=== PATIENT | male | born 1945 | race Caucasian/White ===

== ENCOUNTER 2021-02-03 14:15 | Inpatient (IN) | payer MEDICARE, OTHER ==
[~2021-02-03] VITALS: Ht 175.3 cm; Wt 83.0 kg
[2021-02-03] MEDS ORDERED: CYCL30DR EACHEYE (17:38)
[2021-02-03] MEDS ORDERED: DORZ10DR11 EACHEYE (17:38)
[2021-02-03] MEDS ORDERED: ALLO100T56 PO (17:38)
[2021-02-03] MEDS ORDERED: ASPI81TA31 PO (17:38)
[2021-02-03] MEDS ORDERED: CARV6.252 PO (17:38)
[2021-02-03] MEDS ORDERED: CHOL3000 PO (17:38)
[2021-02-03] MEDS ORDERED: FERR325T28 PO (17:38)
[2021-02-03] MEDS ORDERED: GLIM2TAB31 PO (17:38)
[2021-02-03] MEDS ORDERED: ATOR40TA PO (17:38)
[2021-02-03] MEDS ORDERED: LINA5TAB PO (17:38)
[2021-02-03] MEDS ORDERED: AMIO200T5 PO (17:38)
[2021-02-03] MEDS ORDERED: FAMO10TA94 PO (17:38)
[2021-02-03] MEDS ORDERED: PRED5DRO16 LEFTEYE (17:38)
[2021-02-03] MEDS ORDERED: PIOG15TA8 PO (17:38)
[2021-02-03] MEDS ORDERED: ALPR1TAB2 PO (17:38)
[2021-02-03] MEDS ORDERED: LATA2.5D15 OP (17:38)
[2021-02-03] MEDS ORDERED: CLOP75TA33 PO (17:38)
[2021-02-03 17:46] VITALS: BP 132/55
[2021-02-03] MEDS ORDERED: DEXTROSE 50% 50 ML DISP.SYRIN IV PRN (19:30)
[2021-02-03 20:13] VITALS: BP 110/65
[2021-02-03] MEDS: BLOOD SUGAR DIAGNOSTIC 1 EACH STRIP VI SCH (20:34)
[2021-02-03] MEDS: INSULIN REGULAR, HUMAN 300 UNIT/3 ML VIAL SQ PRN (20:37)
[2021-02-04 06:07] VITALS: BP 144/62
[2021-02-04] MEDS: BLOOD SUGAR DIAGNOSTIC 1 EACH STRIP VI SCH ×4 (06:42→20:51)
[2021-02-04] MEDS: INSULIN REGULAR, HUMAN 300 UNIT/3 ML VIAL SQ PRN ×4 (08:08→20:53)
[2021-02-04] MEDS ORDERED: DORZOLAMIDE/TIMOLOL OPHT DROP 10 ML BOTTLE EACHEYE SCH ×2 (09:00→17:00)
[2021-02-04] MEDS ORDERED: prednisoLONE ACET 1% OPHT DROP 5 ML BOTTLE LEFTEYE SCH (09:00)
[2021-02-04] MEDS ORDERED: CHOLECALCIFEROL 125 MCG PO SCH (09:00)
[2021-02-04] MEDS ORDERED: FAMOTIDINE 10 MG PO SCH (09:00)
[2021-02-04] MEDS ORDERED: RESTASIS EYE EACHEYE SCH (09:00)
[2021-02-04] MEDS: CHOLECALCIFEROL 1,000 UNIT TABLET PO SCH (09:08)
[2021-02-04] MEDS: GLIMEPIRIDE 2 MG TABLET PO SCH (09:08)
[2021-02-04] MEDS: PIOGLITAZONE HCL 15 MG TABLET PO SCH (09:09)
[2021-02-04] MEDS: CARVEDILOL 6.25 MG TABLET PO SCH ×2 (09:09→16:52)
[2021-02-04] MEDS: ALLOPURINOL 100 MG TABLET PO SCH ×2 (09:09→16:54)
[2021-02-04] MEDS: CLOPIDOGREL 75 MG TABLET PO SCH (09:10)
[2021-02-04] MEDS: ASPIRIN 81 MG TAB.CHEW PO SCH (09:10)
[2021-02-04] MEDS: LINAGLIPTIN 5 MG TABLET PO SCH (09:10)
[2021-02-04] MEDS: AMIODARONE HCL 200 MG TABLET PO SCH (09:10)
[2021-02-04] MEDS: FAMOTIDINE 20 MG TABLET PO SCH (09:11)
[2021-02-04] MEDS: FERROUS SULFATE 325 MG TABEC PO SCH ×2 (09:11→16:51)
[2021-02-04 10:16] VITALS: BP 140/70
[2021-02-04] MEDS: MIRALAX 17 GM POWD.PACK PO SCH (11:51)
[2021-02-04] MEDS ORDERED: ACETAMINOPHEN 325 MG TABLET PO PRN (13:30)
[2021-02-04 13:50] LABS: HEMATOCRIT 27.7 % (36.7-47.1); MEAN CORPUSCULAR HEMOGLOBIN 31.9 uug (23.8-33.4); MEAN CORPUSCULAR VOLUME 96.3 fL (73.0-96.2); PLATELET COUNT (AUTO) 267 K/uL (152-348)
[2021-02-04 14:00] LABS: CARBON DIOXIDE 27 mmol/L (21-32); CHLORIDE 105 mmol/L (98-107); CREATININE 2.3 mg/dL (0.6-1.3); GLUCOSE 228 mg/dL (74-106); POTASSIUM 3.7 mmol/L (3.5-5.1); UREA NITROGEN, BLOOD 36 mg/dL (7-18)
[2021-02-04 15:57] VITALS: BP 131/56
[2021-02-04] MEDS: prednisoLONE ACET 1% OPHT DROP 5 ML BOTTLE LEFTEYE SCH (16:49)
[2021-02-04 19:48] VITALS: BP 143/62
[2021-02-04] MEDS ORDERED: ALPRAZOLAM 0.5 MG TABLET PO SCH (21:00)
[2021-02-04] MEDS ORDERED: ALPRAZOLAM 1.5 MG PO SCH (21:00)
[2021-02-04] MEDS ORDERED: ATORVASTATIN 40 MG TABLET PO SCH (21:00)
[2021-02-05 04:34] VITALS: BP 130/59
[2021-02-05] MEDS: BLOOD SUGAR DIAGNOSTIC 1 EACH STRIP VI SCH ×2 (06:33→11:14)
[2021-02-05] MEDS: INSULIN REGULAR, HUMAN 300 UNIT/3 ML VIAL SQ PRN ×2 (07:57→11:11)
[2021-02-05 08:44] LABS: CARBON DIOXIDE 28 mmol/L (21-32); CHLORIDE 104 mmol/L (98-107); CREATININE 2.4 mg/dL (0.6-1.3); GLUCOSE 234 mg/dL (74-106); MAGNESIUM 1.9 mg/dL (1.8-2.4); POTASSIUM 3.8 mmol/L (3.5-5.1); UREA NITROGEN, BLOOD 39 mg/dL (7-18)
[2021-02-05] MEDS: CHOLECALCIFEROL 1,000 UNIT TABLET PO SCH (08:50)
[2021-02-05] MEDS: LINAGLIPTIN 5 MG TABLET PO SCH (08:51)
[2021-02-05] MEDS: prednisoLONE ACET 1% OPHT DROP 5 ML BOTTLE LEFTEYE SCH (08:51)
[2021-02-05] MEDS: AMIODARONE HCL 200 MG TABLET PO SCH (08:51)
[2021-02-05] MEDS: ASPIRIN 81 MG TAB.CHEW PO SCH (08:51)
[2021-02-05] MEDS: MIRALAX 17 GM POWD.PACK PO SCH (08:52)
[2021-02-05] MEDS: CARVEDILOL 6.25 MG TABLET PO SCH (08:54)
[2021-02-05] MEDS: GLIMEPIRIDE 2 MG TABLET PO SCH (08:54)
[2021-02-05] MEDS: ALLOPURINOL 100 MG TABLET PO SCH (08:54)
[2021-02-05] MEDS: PIOGLITAZONE HCL 15 MG TABLET PO SCH (08:54)
[2021-02-05] MEDS: FAMOTIDINE 20 MG TABLET PO SCH (08:56)
[2021-02-05] MEDS: CLOPIDOGREL 75 MG TABLET PO SCH (08:56)
[2021-02-05] MEDS: FERROUS SULFATE 325 MG TABEC PO SCH (08:56)
[2021-02-05] MEDS ORDERED: DORZOLAMIDE/TIMOLOL OPHT DROP 10 ML BOTTLE EACHEYE SCH (09:00)
[2021-02-05] MEDS ORDERED: FUROSEMIDE 40 MG/4 ML VIAL IV SCH (09:00)
[2021-02-05 13:14] VITALS: BP 120/58
[2021-02-05] MEDS ORDERED: POLYVINYL ALCOHOL OPHT DROPS 15 ML BOTTLE EACHEYE PRN (13:30)
[2021-02-05] MEDS ORDERED: ONDANSETRON 4 MG/2 ML VIAL IV PRN (13:45)
[2021-02-05 14:47] LABS: *BILIRUBIN,URIN NEGATIVE (NEGATIVE); *BLOOD, URINE NEGATIVE (NEGATIVE); *CLARITY,URINE CLEAR (CLEAR); *COLOR,URINE YELLOW (YELLOW); *KETONES,URINE NEGATIVE (NEGATIVE); *UROBILINOGEN,URINE 0.2 E.U./dl (NORMAL); LEUKOCYTE ESTERASE ,URINE NEGATIVE (NEGATIVE); NITRITE, URINE NEGATIVE (NEGATIVE); UGLUCOSE TRACE (NEGATIVE)
[2021-02-05 14:52] LABS: BACTERIA,URINE NONE SEEN /HPF (NONE SEEN); MUCUS,URINE FEW /LPF (0-FEW); SQUAMOUS EPITHELIAL CELL,UR FEW /HPF (NONE SEEN); URINE AMORPHOUS URATE FEW /HPF; WBC,URINE 0-3 /HPF (0-3)
[2021-02-05] MEDS ORDERED: LATANOPROST OPHT DROP 2.5 ML BOTTLE RIGHTEYE SCH (21:00)
== END 2021-02-05 15:00 | disposition short-term general hospital (02) | DRG 559 ==
PROVIDERS: ADMIT Physical Medicine & Rehabilitation Pain Medicine; ATTEND Physical Medicine & Rehabilitation Pain Medicine
DX: S72.002D Fracture of unspecified part of neck of left femur, subsequent encounter for closed fracture with routine healing (principal); I50.31 Acute diastolic (congestive) heart failure; I21.4 Non-ST elevation (NSTEMI) myocardial infarction; J96.00 Acute respiratory failure, unspecified whether with hypoxia or hypercapnia; I13.0 Hypertensive heart and chronic kidney disease with heart failure and stage 1 through stage 4 chronic kidney disease, or unspecified chronic kidney disease; N17.9 Acute kidney failure, unspecified; R53.1 Weakness; W19.XXXD Unspecified fall, subsequent encounter; E11.22 Type 2 diabetes mellitus with diabetic chronic kidney disease; E78.5 Hyperlipidemia, unspecified; Z96.642 Presence of left artificial hip joint; I25.10 Atherosclerotic heart disease of native coronary artery without angina pectoris; I48.0 Paroxysmal atrial fibrillation; Z95.1 Presence of aortocoronary bypass graft; F39 Unspecified mood [affective] disorder; N18.30 Chronic kidney disease, stage 3 unspecified
CPT/HCPCS: 36415; 71045; 83735; 85025; 93307; 97161; J1815; J1940; J2405; J2650; J7040; J8499

== ENCOUNTER 2021-02-05 15:47 | Inpatient (IN) | payer MEDICARE, OTHER ==
[~2021-02-05] VITALS: Ht 175.3 cm; Wt 79.4 kg
--- NOTE | 2021-02-05 15:30 | NUR ---
PT ADMITTED TO FLOOR, IN ROOM 310. REPORT RECEIVED FROM ARU NURSE. PT C/O LETHARGY AND SOB, UPON ADDITION PT IS ON 2L O2 VIA NC, NO SIGNS OF DISTRESS, NO REPORTS OF PAIN. PT SATURATING AT 100% ON O2, VITALS STABLE. PT IS BED CONFINED AT THIS TIME, PT VOIDING VIA URINAL, IV ACCESS ON THE RIGHT WRIST 22G AND THE LEFT WRIST 22G BOTH SITES ARE SALINE LOCKED. PT WAS AT [facility] 02/03 FOR A LEFT HIP REPLACEMENT ON 01/29 AND DUE TO A BLOCKAGE THEY DID A CABG ON 01/28. ADMITTING MD MADE AWARE THAT PT IN NOW ADMITTED TO THE FLOOR. BED LOW AND LOCKED, CALL LIGHT WITHIN REACH, FAMILY AT BEDSIDE, WILL CONTINUE TO MONITOR.
[~2021-02-05 15:47] MED LIST: ALLO100T56 PO; ALPR1TAB2 PO; AMIO200T5 PO; ASPI81TA31 PO; ATOR40TA PO; CARV6.252 PO; CHOL3000 PO; CLOP75TA33 PO; CYCL30DR EACHEYE; DORZ10DR11 EACHEYE; FAMO10TA94 PO; FERR325T28 PO; GLIM2TAB31 PO; LATA2.5D15 OP; LINA5TAB PO; PIOG15TA8 PO; PRED5DRO16 LEFTEYE
[2021-02-05 15:52] VITALS: BP 109/52
[2021-02-05] MEDS ORDERED: ACETAMINOPHEN 325 MG TABLET PO PRN (17:30)
[2021-02-05] MEDS ORDERED: ZOLPIDEM 5 MG TABLET PO PRN (17:30)
[2021-02-05] MEDS ORDERED: DEXTROSE 50% 50 ML DISP.SYRIN IV PRN (17:30)
[2021-02-05] MEDS ORDERED: Z GUARD REMEDY PASTE 57 GM TUBE TOP PRN (17:30)
[2021-02-05] MEDS ORDERED: MAGNESIUM HYDROXIDE 30 ML LIQUID UDC PO PRN (17:30)
[2021-02-05] MEDS ORDERED: ONDANSETRON 4 MG/2 ML VIAL IV PRN (17:30)
[2021-02-05] MEDS ORDERED: MIRALAX 17 GM POWD.PACK PO PRN (17:45)
[2021-02-05] MEDS ORDERED: BUMETANIDE INJ 4 MG in IV DEXTROSE 5% 24 ML IV ONE (18:00)
[2021-02-05] MEDS ORDERED: POLYVINYL ALCOHOL OPHT DROPS 15 ML BOTTLE EACHEYE PRN (18:15)
[2021-02-05] MEDS: BLOOD SUGAR DIAGNOSTIC 1 EACH STRIP VI SCH (20:13)
--- NOTE | 2021-02-05 20:15 | NUR ---
PATIENT AWAKE IN BED WITH FAMILY AT BEDSIDE. PATIENT IS A/O X2. ASKING FOR HIS XANAX TO GO TO SLEEP. VS WNL. H/L INTACT, NOTED TO LEFT HAND #22 GAUGE. ON O2 2L NC SATING 97%. NO S/S OF ANY PAIN OR DISCOMFORT. NO SOB NOTED. NO C/O PAIN OR DISCOMFORT. DRESSING NOTED TO LEFT HIP. DRY AND INTACT. BLOOD SUGAR TAKEN AND RECEIVED 217, AT BEDSIDE AND REFUSED FOR PATIENT TO BE GIVEN INSULIN, STATING HER DID NOT EAT ANY DINNER. INCINERATOR ATTENDANT NOTIFIED. BED ALARM ON. CALL LIGHT IN REACH. ALL NEEDS ATTENDED. WILL CONTINUE TO MONITOR AND ASSESS.
[2021-02-05] MEDS: ATORVASTATIN 40 MG TABLET PO SCH (20:25)
[2021-02-05] MEDS: prednisoLONE ACET 1% OPHT DROP 5 ML BOTTLE LEFTEYE SCH (20:25)
[2021-02-05] MEDS: INSULIN REGULAR, HUMAN 300 UNIT/3 ML VIAL SQ PRN (20:26)
[2021-02-05] MEDS: DORZOLAMIDE/TIMOLOL OPHT DROP 10 ML BOTTLE EACHEYE SCH (20:27)
[2021-02-05 20:32] VITALS: BP 131/62
[2021-02-05] MEDS ORDERED: LATANOPROST OPHT DROP 2.5 ML BOTTLE RIGHTEYE SCH (21:00)
[2021-02-05] MEDS ORDERED: ALPRAZOLAM 1.5 MG PO SCH (21:00)
[2021-02-05] MEDS ORDERED: ALPRAZOLAM 0.5 MG TABLET PO SCH (21:00)
--- NOTE | 2021-02-05 23:50 | NUR ---
PATIENT PLACED ON TELE PER ADMISSION ORDER. ON TELE SR. BED ALARM ON. CALL LIGHT IN REACH. ALL NEEDS ATTENDED. WILL CONTINUE TO MONITOR AND ASSESS.
[2021-02-06 00:08] VITALS: BP 125/81
[2021-02-06] MEDS ORDERED: QUETIAPINE FUMARATE 25 MG TABLET PO ONE (00:45)
--- NOTE | 2021-02-06 00:45 | NUR ---
PATIENT AWAKE IN BED. VERY AGITATED. PULLED OUT IV NOTED TO RIGHT HAND. REPEATEDLY REMOVING TELE MONITOR AND O2. CALLED OUT TO MD FOR FURTHER ORDERS. ALL NEEDS ATTENDED. WILL CONTINUE TO MONITOR AND ASSESS.
[2021-02-06 04:28] VITALS: BP 130/55
[2021-02-06 06:08] LABS: HEMATOCRIT 28.1 % (36.7-47.1); MEAN CORPUSCULAR HEMOGLOBIN 31.6 uug (23.8-33.4); MEAN CORPUSCULAR VOLUME 96.6 fL (73.0-96.2); PLATELET COUNT (AUTO) 281 K/uL (152-348)
[2021-02-06 06:31] LABS: CARBON DIOXIDE 28 mmol/L (21-32); CHLORIDE 102 mmol/L (98-107); CHOLESTEROL 87 mg/dL (<200); CREATININE 2.9 mg/dL (0.6-1.3); GLUCOSE 249 mg/dL (74-106); HDL CHOLESTEROL 21 mg/dL (40-60); MAGNESIUM 1.9 mg/dL (1.8-2.4); PHOSPHOROUS 3.7 mg/dL (2.5-4.9); POTASSIUM 3.3 mmol/L (3.5-5.1); TRIGLYCERIDES 120 MG/DL (30-150); UREA NITROGEN, BLOOD 46 mg/dL (7-18)
[2021-02-06] MEDS: BLOOD SUGAR DIAGNOSTIC 1 EACH STRIP VI SCH ×4 (06:35→21:40)
--- NOTE | 2021-02-06 08:00 | NUR ---
RECEIVED PT IN BED RESTING, PT APPEARS TO BE LETHARGIC, BUT RESPONSIVE. AT BEDSIDE, REMOVED PT ROBERT MITTENS AND ACCIDENTLY DISLODGED PT IV. PT ON 3L O2 VIA NC, NO SIGNS OF DISTRESS, NO REPORTS OF PAIN AT THIS TIME. PT VOIDING VIA URINAL AT BEDSIDE, PT INSULIN HELD PER MD ORDER PT IS NOT EATING. WILL CONTINUE WITH PLAN OF CARE
[2021-02-06] MEDS ORDERED: POTASSIUM CHLORIDE 20 MEQ POWDER PACKET PO ONE (08:30)
[2021-02-06] MEDS ORDERED: GLIMEPIRIDE 2 MG TABLET PO SCH (09:00)
[2021-02-06] MEDS: CHOLECALCIFEROL 1,000 UNIT TABLET PO SCH (09:00)
[2021-02-06] MEDS: ALLOPURINOL 100 MG TABLET PO SCH ×2 (09:00→17:00)
[2021-02-06] MEDS: CLOPIDOGREL 75 MG TABLET PO SCH (09:00)
[2021-02-06] MEDS ORDERED: FAMOTIDINE 10 MG PO SCH (09:00)
[2021-02-06] MEDS: FAMOTIDINE 20 MG TABLET PO SCH (09:00)
[2021-02-06] MEDS: ASPIRIN 81 MG TAB.CHEW PO SCH (09:00)
[2021-02-06] MEDS: CARVEDILOL 6.25 MG TABLET PO SCH ×2 (09:00→17:00)
[2021-02-06] MEDS ORDERED: PIOGLITAZONE HCL 15 MG TABLET PO SCH (09:00)
[2021-02-06] MEDS: LINAGLIPTIN 5 MG TABLET PO SCH (09:00)
[2021-02-06] MEDS ORDERED: CHOLECALCIFEROL 125 MCG PO SCH (09:00)
[2021-02-06] MEDS: AMIODARONE HCL 200 MG TABLET PO SCH (09:00)
[2021-02-06] MEDS: FERROUS SULFATE 325 MG TABEC PO SCH ×2 (09:00→17:00)
--- NOTE | 2021-02-06 09:00 | NUR ---
DR PONCE MADE ROUNDS AND ORDERS PUT IN DIRECTED FOR STAT HEAD CT AND ABG.
[2021-02-06 09:44] LABS: ABG BASE EXCESS 0.3 mmol/L; ABG HCO3 24.8 mmol/L; ABG PCO2 39.4 mmHg (35.0-45.0); ABG PH 7.417 (7.350-7.450); ABG PO2 52.3 mmHg (75.0-100.0); ABG SITE RIGHT RADIAL; ABG TOTAL HEMOGLOBIN 10.1 G/dL (13.5-18.0); COHb 0.9 % (0.5-1.5); MetHb 0.4 % (0.0-1.5); O2Hb 84.8 % (94.0-97.0); VENT MODE Nasal Cannula
[2021-02-06] MEDS: DORZOLAMIDE/TIMOLOL OPHT DROP 10 ML BOTTLE EACHEYE SCH ×2 (10:11→21:39)
[2021-02-06] MEDS: prednisoLONE ACET 1% OPHT DROP 5 ML BOTTLE LEFTEYE SCH ×2 (10:12→21:40)
[2021-02-06] MEDS: LATANOPROST OPHT DROP 2.5 ML BOTTLE RIGHTEYE SCH (10:13)
[2021-02-06 12:00] VITALS: BP 146/65
[2021-02-06] MEDS: PIPERACILLIN/TAZO 2.25 G in IV DEXTROSE 5% 50 ML IV SCH ×3 (12:03→21:34)
[2021-02-06] MEDS: INSULIN REGULAR, HUMAN 300 UNIT/3 ML VIAL SQ PRN ×3 (12:41→21:51)
[2021-02-06] MEDS ORDERED: VANCOMYCIN IV 1,250 MG in IV DEXTROSE 5% 250 ML IV ONE (13:00)
[2021-02-06 16:00] VITALS: BP 137/66
--- NOTE | 2021-02-06 19:45 | NUR ---
Patient asleep but arousable, no s/s of sob no s/s of chest pain, noted productive cough, will notify RT for breathing treatment, patient remain npo, family at bedside, held all po medications as ordered. cont to monitor.
--- NOTE | 2021-02-06 19:49 | NUR ---
Patient in bed resting, lethargic but responsive to name. No signs of acute distress. On 3L O2 via NC. PO medications held per MD order. Swallow evaluation done, patient high risk for aspiration. For MRI without contrast tomorrow. Will endorse to incoming shift for continuity of care.
[2021-02-06 20:05] VITALS: BP 143/80
--- NOTE | 2021-02-06 20:35 | NUR ---
Patient complain of sob, with moist cough noted, kept hob elevated, increased oxygen 6 liters per min, sat 91-96, RT gave breathing treatment to patient, tolerate well, and effective results, no further complain of sob. Saturation 96. Vital signs wnl, 119/62, HR 98, 97% at 6 liters. Patient still drowsy, but arousable, family at bedside. cont to monitor. Patient tele monitor sinus rhythm. cont to monitor.
[2021-02-06] MEDS: IPRATROPIUM BROMIDE 0.5 MG/2.5 ML NEBU NEB PRN (20:37)
[2021-02-06] MEDS: ALBUTEROL SULFATE 2.5 MG/3 ML NEBU NEB PRN (20:37)
[2021-02-06] MEDS: ATORVASTATIN 40 MG TABLET PO SCH (21:00)
[2021-02-06] MEDS: PHENAZOPYRIDINE HCL 100 MG TABLET PO SCH (21:53)
[2021-02-07 00:01] VITALS: BP 110/68
[2021-02-07 04:05] VITALS: BP 110/57
[2021-02-07] MEDS: PIPERACILLIN/TAZO 2.25 G in IV DEXTROSE 5% 50 ML IV SCH ×2 (05:01→14:26)
[2021-02-07] MEDS: ALBUTEROL SULFATE 2.5 MG/3 ML NEBU NEB PRN ×2 (05:22→20:17)
[2021-02-07] MEDS: IPRATROPIUM BROMIDE 0.5 MG/2.5 ML NEBU NEB PRN ×2 (05:22→20:17)
[2021-02-07] MEDS: PHENAZOPYRIDINE HCL 100 MG TABLET PO SCH (06:00)
[2021-02-07] MEDS: BLOOD SUGAR DIAGNOSTIC 1 EACH STRIP VI SCH ×4 (06:05→20:58)
[2021-02-07 06:52] LABS: HEMATOCRIT 28.8 % (36.7-47.1); MEAN CORPUSCULAR HEMOGLOBIN 32.2 uug (23.8-33.4); MEAN CORPUSCULAR VOLUME 96.8 fL (73.0-96.2); PLATELET COUNT (AUTO) 317 K/uL (152-348)
[2021-02-07 06:56] LABS: ALANINE AMINOTRANSFERASE 17 U/L (16-63); ALKALINE PHOSPHATASE 56 U/L (50-136); ASPARTATE AMINOTRANSFERASE 22 U/L (15-37); BILIRUBIN,TOTAL 0.9 mg/dL (0.2-1.0); CARBON DIOXIDE 25 mmol/L (21-32); CHLORIDE 102 mmol/L (98-107); CREATINE KINASE, TOTAL 29 U/L (39-308); CREATININE 3.1 mg/dL (0.6-1.3); GLUCOSE 220 mg/dL (74-106); MAGNESIUM 2.1 mg/dL (1.8-2.4); PHOSPHOROUS 3.6 mg/dL (2.5-4.9); POTASSIUM 3.3 mmol/L (3.5-5.1); TOTAL PROTEIN, SERUM 6.4 g/dL (6.4-8.2); UREA NITROGEN, BLOOD 51 mg/dL (7-18)
--- NOTE | 2021-02-07 07:31 | NUR ---
patient awake, on oxygen 6 liters sat 92-96%, wanted to eat and drink, patient on npo at this time, endorsed to next shift to follow up with md regarding diet. patient given hhn tx for cough and congestion with help, with episode of anxiety, yelling, and demanding from water or fluids, kept mouth moist but wanted more, will cont to monitor.
[2021-02-07 07:58] VITALS: BP 136/66
[2021-02-07] MEDS: DORZOLAMIDE/TIMOLOL OPHT DROP 10 ML BOTTLE EACHEYE SCH ×2 (08:52→20:45)
[2021-02-07] MEDS: LATANOPROST OPHT DROP 2.5 ML BOTTLE RIGHTEYE SCH (08:53)
[2021-02-07] MEDS: prednisoLONE ACET 1% OPHT DROP 5 ML BOTTLE LEFTEYE SCH ×2 (08:54→20:46)
[2021-02-07] MEDS: INSULIN REGULAR, HUMAN 300 UNIT/3 ML VIAL SQ PRN ×4 (08:58→21:06)
--- NOTE | 2021-02-07 09:31 | NUR ---
TO [facility] VIA AMBULANCE FOR MRI BRAIN WITHOUT CONTRAST
--- NOTE | 2021-02-07 11:05 | NUR ---
BACK FROM MRI NO ACUTE CHANGE
[2021-02-07 12:00] VITALS: BP 149/73
[2021-02-07] MEDS: FERROUS SULFATE 325 MG TABEC PO SCH ×2 (12:07→17:00)
[2021-02-07] MEDS: ALLOPURINOL 100 MG TABLET PO SCH ×2 (12:07→17:00)
[2021-02-07] MEDS: CHOLECALCIFEROL 1,000 UNIT TABLET PO SCH (12:08)
[2021-02-07] MEDS: ASPIRIN 81 MG TAB.CHEW PO SCH (12:08)
[2021-02-07] MEDS: AMIODARONE HCL 200 MG TABLET PO SCH (12:08)
[2021-02-07] MEDS: CARVEDILOL 6.25 MG TABLET PO SCH ×2 (12:09→17:00)
[2021-02-07] MEDS: FAMOTIDINE 20 MG TABLET PO SCH (12:10)
[2021-02-07] MEDS: CLOPIDOGREL 75 MG TABLET PO SCH (12:10)
[2021-02-07] MEDS: LINAGLIPTIN 5 MG TABLET PO SCH (12:11)
[2021-02-07] MEDS: POTASSIUM CHLORIDE 50 ML IV SCH ×2 (12:13→13:15)
[2021-02-07] MEDS ORDERED: PHENAZOPYRIDINE HCL 100 MG TABLET PO SCH (14:00)
[2021-02-07 16:00] VITALS: BP 93/50
[2021-02-07] MEDS: CEFEPIME HCL 2 G in IV DEXTROSE 5% 100 ML IV SCH (18:24)
[2021-02-07 20:00] VITALS: BP 102/53
[2021-02-07] MEDS: ATORVASTATIN 40 MG TABLET PO SCH ×2 (20:46→21:00)
--- NOTE | 2021-02-07 20:50 | NUR ---
Report received with at bedside. lipitor not given as claims he cannot swallow. with speech evaluation in am
[2021-02-07] MEDS ORDERED: FUROSEMIDE 20 MG/2 ML VIAL IV SCH (21:00)
--- NOTE | 2021-02-07 21:50 | NUR ---
urine sample collected and sent to lab. asleep
[2021-02-07 22:00] LABS: *BILIRUBIN,URIN NEGATIVE (NEGATIVE); *BLOOD, URINE NEGATIVE (NEGATIVE); *CLARITY,URINE CLEAR (CLEAR); *COLOR,URINE YELLOW (YELLOW); *KETONES,URINE NEGATIVE (NEGATIVE); *UROBILINOGEN,URINE 0.2 E.U./dl (NORMAL); LEUKOCYTE ESTERASE ,URINE NEGATIVE (NEGATIVE); NITRITE, URINE NEGATIVE (NEGATIVE); PH,URINE 5.5 (5.0-8.0); UGLUCOSE NEGATIVE (NEGATIVE)
[2021-02-07 22:06] LABS: *CREATININE,URINE 94.4 mg/dL (30-125); *URINE TOTAL PROTEIN RANDOM 55.3 mg/dL (<150/24HR)
--- NOTE | 2021-02-07 23:54 | NUR ---
with complaints that he is hungry but is npo .will have a swqallow evaluation in the morning
[2021-02-08] VITALS (7 sets, daily range): BP systolic 109–130; BP diastolic 50–62
--- NOTE | 2021-02-08 | NUR ---
a small amount of ice given to wet the lips as he is humgry, refused to be turned .
--- NOTE | 2021-02-08 02:00 | NUR ---
asleep. refused to be turned as the said he is clean and dry
--- NOTE | 2021-02-08 03:22 | NUR ---
awake intermitently. at bedside.
--- NOTE | 2021-02-08 03:48 | NUR ---
awake and complaints he wants to have a bm. repositioned and kept comfortable. patienr has no recorded bm since admission. will inform physician in am.
--- NOTE | 2021-02-08 05:28 | NUR ---
PATIENT WITH COMPLAINTS OF INABILITY TO HAVE A BM, WILL INFORM THENON CALL PHYSICIAN BUT ORDERED WILL CALL LATER. WITH ORDERS FOR MIRALAX BUT PATIENT IS NPO ANS IS SCHEDULED FOR SWALLOW EVAL IN AM. Addendum: 02/08/21 at 0531 by [facility] RN2 RN BLOOD SUGAR RECHECKED 200 MG/DL . RECHECKED THE PATIENT IS NPO AND HAD NO FOOD
--- NOTE | 2021-02-08 05:35 | NUR ---
SARAHY Larios called and informed about the patient complaints and gave orders,
[2021-02-08] MEDS ORDERED: BISACODYL 10 MG SUPP.RECT RC ONE (05:45)
--- NOTE | 2021-02-08 05:56 | NUR ---
dulcolax supp inserted per rectum as ordered for constipation
--- NOTE | 2021-02-08 07:06 | NUR ---
TRANSFERED TO ROOM 321 WITH AT BEDSIDE. NO BM NOTED YET,NPO TILL THE SWALLOW EVALUATION IS COMPLETED
[2021-02-08] MEDS: BLOOD SUGAR DIAGNOSTIC 1 EACH STRIP VI SCH ×4 (07:07→20:35)
[2021-02-08 07:19] LABS: HEMATOCRIT 28.1 % (36.7-47.1); MEAN CORPUSCULAR HEMOGLOBIN 32.2 uug (23.8-33.4); MEAN CORPUSCULAR VOLUME 98.1 fL (73.0-96.2); PLATELET COUNT (AUTO) 357 K/uL (152-348)
[2021-02-08 07:38] LABS: ALANINE AMINOTRANSFERASE 20 U/L (16-63); ALKALINE PHOSPHATASE 54 U/L (50-136); ASPARTATE AMINOTRANSFERASE 21 U/L (15-37); BILIRUBIN,TOTAL 0.6 mg/dL (0.2-1.0); CARBON DIOXIDE 30 mmol/L (21-32); CHLORIDE 105 mmol/L (98-107); CREATINE KINASE, TOTAL 26 U/L (39-308); CREATININE 3.8 mg/dL (0.6-1.3); GLUCOSE 198 mg/dL (74-106); MAGNESIUM 2.2 mg/dL (1.8-2.4); PHOSPHOROUS 4.9 mg/dL (2.5-4.9); POTASSIUM 3.6 mmol/L (3.5-5.1); TOTAL PROTEIN, SERUM 6.6 g/dL (6.4-8.2)
--- NOTE | 2021-02-08 07:47 | NUR ---
Dr Otero called as the wants the xalatan eye drops to scheduled at 2100 and the timolol eye grop only in the right eye instread of both eyes ,awaiting response.day shift rn is aware,
[2021-02-08 07:54] LABS: UREA NITROGEN, BLOOD 58 mg/dL (7-18)
[2021-02-08] MEDS ORDERED: VANCOMYCIN IV 1,250 MG in IV DEXTROSE 5% 250 ML IV ONE (08:00)
--- NOTE | 2021-02-08 08:00 | NUR ---
RECEIVED CHANGE OF SHIFT REPORT. PT SEEMS FOR AWAKE AND ALERT THAN THE DAY BEFORE. PT IS ANSWERING QUESTIONS, ON 4L VIA NC SATURATING AT 96%, NO SIGNS OF DISTRESS, NO REPORTS OF PAIN. PT HAS AN OCCASIONAL COUGH. PT NPO PENDING SWALLOW EVAL. PT HAS IV ON LEFT HAND 22G SALINE LOCK. FAMILY AT BEDSIDE, BED LOW AND LOCK CALL LIGHT WITHIN REACH, WILL CONTINUE TO MONITOR.
[2021-02-08] MEDS: ALBUTEROL SULFATE 2.5 MG/3 ML NEBU NEB PRN ×2 (08:29→23:27)
[2021-02-08] MEDS: IPRATROPIUM BROMIDE 0.5 MG/2.5 ML NEBU NEB PRN ×2 (08:29→23:27)
[2021-02-08] MEDS: CHOLECALCIFEROL 1,000 UNIT TABLET PO SCH (10:16)
[2021-02-08] MEDS: AMIODARONE HCL 200 MG TABLET PO SCH (10:18)
[2021-02-08] MEDS: INSULIN REGULAR, HUMAN 300 UNIT/3 ML VIAL SQ PRN ×4 (10:18→20:36)
[2021-02-08] MEDS: CARVEDILOL 6.25 MG TABLET PO SCH ×2 (10:19→17:24)
[2021-02-08] MEDS: CLOPIDOGREL 75 MG TABLET PO SCH (10:19)
[2021-02-08] MEDS: FAMOTIDINE 20 MG TABLET PO SCH (10:19)
[2021-02-08] MEDS: ALLOPURINOL 100 MG TABLET PO SCH ×2 (10:19→17:24)
[2021-02-08] MEDS: ASPIRIN 81 MG TAB.CHEW PO SCH (10:19)
[2021-02-08] MEDS: LINAGLIPTIN 5 MG TABLET PO SCH (10:20)
[2021-02-08] MEDS: FERROUS SULFATE 325 MG TABEC PO SCH ×2 (10:20→17:24)
[2021-02-08] MEDS: DORZOLAMIDE/TIMOLOL OPHT DROP 10 ML BOTTLE EACHEYE SCH (10:25)
[2021-02-08] MEDS: prednisoLONE ACET 1% OPHT DROP 5 ML BOTTLE LEFTEYE SCH ×2 (10:26→20:24)
[2021-02-08] MEDS: LATANOPROST OPHT DROP 2.5 ML BOTTLE RIGHTEYE SCH (10:29)
[2021-02-08 11:39] LABS: *CREATININE,URINE 81.2 mg/dL (30-125); *URINE TOTAL PROTEIN RANDOM 54.2 mg/dL (<150/24HR)
[2021-02-08 11:43] LABS: *BILIRUBIN,URIN NEGATIVE (NEGATIVE); *BLOOD, URINE NEGATIVE (NEGATIVE); *CLARITY,URINE CLEAR (CLEAR); *COLOR,URINE YELLOW (YELLOW); *KETONES,URINE TRACE (NEGATIVE); *UROBILINOGEN,URINE 0.2 E.U./dl (NORMAL); LEUKOCYTE ESTERASE ,URINE NEGATIVE (NEGATIVE); NITRITE, URINE NEGATIVE (NEGATIVE); PH,URINE 5.5 (5.0-8.0); UGLUCOSE NEGATIVE (NEGATIVE)
[2021-02-08] MEDS: CEFEPIME HCL 2 G in IV DEXTROSE 5% 100 ML IV SCH (17:24)
[2021-02-08 17:49] LABS: RBC,URINE 0-3 /HPF (0-3)
[2021-02-08 17:50] LABS: BACTERIA,URINE RARE /HPF (NONE SEEN); SQUAMOUS EPITHELIAL CELL,UR FEW /HPF (NONE SEEN); URINE AMORPHOUS URATE FEW /HPF; WBC,URINE 0-3 /HPF (0-3)
[2021-02-08] MEDS: ATORVASTATIN 40 MG TABLET PO SCH (20:20)
[2021-02-08] MEDS: DORZOLAMIDE/TIMOLOL OPHT DROP 10 ML BOTTLE RIGHTEYE SCH (20:21)
[2021-02-09] VITALS (7 sets, daily range): BP systolic 120–145; BP diastolic 52–78
--- NOTE | 2021-02-09 05:01 | NUR ---
Received pt lying in bed. Ax0x2, language barrier, speaks Icelandic. at bedside to assist with translation. VSS on 4L NC saturating @ 95%. Pt is congested and has a wet cough. HOB elevated, encouraged pt to use incentive spirometer. Notified RT to give breathing tx, tolerated well. NSR on the monitor, denies any chest pain. Pt denies any pain. All due medications administered and tolerated well. BS 179,covered per sliding scale. Per MD order performed bladder scan 308cc and inserted Solomon with 500cc out. Pt tolerated well. Small BM noted. Pt resting well in bed. Needs attended to. SCD pumps in place. Turned and repositioned PT Q2H. Established new IV, right FA 22G, patent and intact. All personal items within pt reach. Will continue plan of care.
[2021-02-09 06:10] LABS: HEMATOCRIT 28.3 % (36.7-47.1); MEAN CORPUSCULAR VOLUME 97.3 fL (73.0-96.2); PLATELET COUNT (AUTO) 346 K/uL (152-348)
[2021-02-09] MEDS: BLOOD SUGAR DIAGNOSTIC 1 EACH STRIP VI SCH ×4 (06:50→20:38)
[2021-02-09 06:55] LABS: CARBON DIOXIDE 25 mmol/L (21-32); CHLORIDE 106 mmol/L (98-107); CREATININE 3.6 mg/dL (0.6-1.3); GLUCOSE 235 mg/dL (74-106); MAGNESIUM 2.2 mg/dL (1.8-2.4); PHOSPHOROUS 3.2 mg/dL (2.5-4.9); POTASSIUM 3.7 mmol/L (3.5-5.1); UREA NITROGEN, BLOOD 58 mg/dL (7-18)
[2021-02-09] MEDS: DOXYCYCLINE HYCLATE IV 200 MG in IV DEXTROSE 5% 250 ML IV SCH ×2 (08:29→21:06)
[2021-02-09] MEDS: INSULIN REGULAR, HUMAN 300 UNIT/3 ML VIAL SQ PRN ×4 (08:30→20:49)
[2021-02-09] MEDS: prednisoLONE ACET 1% OPHT DROP 5 ML BOTTLE LEFTEYE SCH ×2 (08:31→20:24)
[2021-02-09] MEDS: LATANOPROST OPHT DROP 2.5 ML BOTTLE RIGHTEYE SCH (08:32)
[2021-02-09] MEDS: DORZOLAMIDE/TIMOLOL OPHT DROP 10 ML BOTTLE RIGHTEYE SCH ×2 (08:32→20:24)
[2021-02-09] MEDS: LINAGLIPTIN 5 MG TABLET PO SCH (08:32)
[2021-02-09] MEDS: CARVEDILOL 6.25 MG TABLET PO SCH ×2 (08:33→18:17)
[2021-02-09] MEDS: FAMOTIDINE 20 MG TABLET PO SCH (08:33)
[2021-02-09] MEDS: ASPIRIN 81 MG TAB.CHEW PO SCH (08:33)
[2021-02-09] MEDS: AMIODARONE HCL 200 MG TABLET PO SCH (08:33)
[2021-02-09] MEDS: ALLOPURINOL 100 MG TABLET PO SCH ×2 (08:33→18:17)
[2021-02-09] MEDS: CLOPIDOGREL 75 MG TABLET PO SCH (08:33)
[2021-02-09] MEDS: FERROUS SULFATE 325 MG TABEC PO SCH ×2 (08:33→18:17)
[2021-02-09] MEDS: CHOLECALCIFEROL 1,000 UNIT TABLET PO SCH (08:34)
[2021-02-09] MEDS: ALBUTEROL SULFATE 2.5 MG/3 ML NEBU NEB PRN ×2 (08:42→15:20)
[2021-02-09] MEDS: IPRATROPIUM BROMIDE 0.5 MG/2.5 ML NEBU NEB PRN ×2 (08:42→15:20)
[2021-02-09 15:21] LABS: ALPHA-1-GLOBULIN 0.4; ALPHA-2-GLOBULIN 0.7
[2021-02-09 15:22] LABS: A/G RATIO 0.8; BETA GLOBULIN 1.4 High; GAMMA GLOBULIN 0.6; GLOBULIN, TOTAL 3.1; M-SPIKE 0.8 High
[2021-02-09] MEDS: CEFEPIME HCL 2 G in IV DEXTROSE 5% 100 ML IV SCH (18:43)
[2021-02-09] MEDS: ATORVASTATIN 40 MG TABLET PO SCH (20:53)
[2021-02-10 00:45] VITALS: BP 139/69
[2021-02-10] MEDS ORDERED: OLANZAPINE 10 MG VIAL IM ONE (03:15)
[2021-02-10 04:00] VITALS: BP 116/74
--- NOTE | 2021-02-10 05:39 | NUR ---
Pt awake and restless most of the night. Pulled out IV, new one reinserted. Attempted to pull out Solomon. Received order for bilateral mittens and placed them on patient. Given Zyprexa 2.5mg IM, tolerated well and finally got to sleep. No other distress noted. Safety and comfort provided. No other issues or concerns at this time. Will endorse to day shift.
[2021-02-10] MEDS: ALBUTEROL SULFATE 2.5 MG/3 ML NEBU NEB PRN ×2 (06:10→12:54)
[2021-02-10] MEDS: IPRATROPIUM BROMIDE 0.5 MG/2.5 ML NEBU NEB PRN ×2 (06:10→12:54)
[2021-02-10] MEDS: BLOOD SUGAR DIAGNOSTIC 1 EACH STRIP VI SCH ×5 (06:43→21:19)
[2021-02-10 07:01] LABS: ALANINE AMINOTRANSFERASE 18 U/L (16-63); ALKALINE PHOSPHATASE 64 U/L (50-136); ASPARTATE AMINOTRANSFERASE 21 U/L (15-37); BILIRUBIN,TOTAL 0.8 mg/dL (0.2-1.0); CARBON DIOXIDE 27 mmol/L (21-32); CHLORIDE 106 mmol/L (98-107); CREATININE 3.4 mg/dL (0.6-1.3); GLUCOSE 261 mg/dL (74-106); PHOSPHOROUS 2.4 mg/dL (2.5-4.9); POTASSIUM 3.2 mmol/L (3.5-5.1); TOTAL PROTEIN, SERUM 6.8 g/dL (6.4-8.2); UREA NITROGEN, BLOOD 55 mg/dL (7-18)
[2021-02-10 07:28] LABS: HEMATOCRIT 28.4 % (36.7-47.1); MEAN CORPUSCULAR HEMOGLOBIN 32.1 uug (23.8-33.4); MEAN CORPUSCULAR VOLUME 95.8 fL (73.0-96.2); PLATELET COUNT (AUTO) 356 K/uL (152-348)
--- NOTE | 2021-02-10 07:47 | NUR ---
RECEIVED PATIENT IN BED AWAKE DID NOT RESPOND VERBALLY JUST LOOKED AT THIS WRITTER WHEN I ASKED HIM IF HE WAS OKAY SEEM QUIET MITTENS ARE OFF AT THIS STATED THAT SHE REMOVED THEM BECAUSE PATIENT WANTS THEM OUT AND SHE IS HERE AND WILL ENSURE THAT HE WILL NOT REMOVE HIS HEPLOCK AGAIN HE IS ON O2 AT 4L/M BY NASAL CANULA WITH NO SHORTNESS OF BREATH AT THIS TIME TELE IS SR PATIENT MADE COMFORTABLE WILL CONTINUE TO OBSERVE.
[2021-02-10 08:06] LABS: A/G RATIO 0.8 (0.7-1.7); ALBUMIN 2.5 g/dL (2.9-4.4); ALPHA-1-GLOBULIN 0.4 g/dL (0.0-0.4); ALPHA-2-GLOBULIN 0.7 g/dL (0.4-1.0); BETA GLOBULIN 1.4 g/dL (0.7-1.3); GAMMA GLOBULIN 0.5 g/dL (0.4-1.8); GLOBULIN, TOTAL 3.1 g/dL (2.2-3.9); M-SPIKE 0.8 g/dL (Not Observed)
[2021-02-10] MEDS ORDERED: POTASSIUM CHLORIDE 20 MEQ POWDER PACKET PO ONE (08:15)
[2021-02-10] MEDS: INSULIN REGULAR, HUMAN 300 UNIT/3 ML VIAL SQ PRN ×5 (08:18→21:53)
[2021-02-10] MEDS: CLOPIDOGREL 75 MG TABLET PO SCH (09:13)
[2021-02-10] MEDS: ASPIRIN 81 MG TAB.CHEW PO SCH (09:13)
[2021-02-10] MEDS: LINAGLIPTIN 5 MG TABLET PO SCH (09:14)
[2021-02-10] MEDS: FAMOTIDINE 20 MG TABLET PO SCH (09:14)
[2021-02-10] MEDS: FERROUS SULFATE 325 MG TABEC PO SCH ×2 (09:14→16:22)
[2021-02-10] MEDS: AMIODARONE HCL 200 MG TABLET PO SCH (09:14)
[2021-02-10] MEDS: ALLOPURINOL 100 MG TABLET PO SCH ×2 (09:14→16:22)
[2021-02-10] MEDS: CHOLECALCIFEROL 1,000 UNIT TABLET PO SCH (09:14)
[2021-02-10] MEDS: CARVEDILOL 6.25 MG TABLET PO SCH ×2 (09:15→16:23)
[2021-02-10] MEDS: LATANOPROST OPHT DROP 2.5 ML BOTTLE RIGHTEYE SCH (09:29)
[2021-02-10] MEDS: DORZOLAMIDE/TIMOLOL OPHT DROP 10 ML BOTTLE RIGHTEYE SCH ×2 (09:29→21:33)
[2021-02-10] MEDS: prednisoLONE ACET 1% OPHT DROP 5 ML BOTTLE LEFTEYE SCH ×2 (09:29→21:34)
[2021-02-10] MEDS: DOXYCYCLINE HYCLATE IV 200 MG in IV DEXTROSE 5% 250 ML IV SCH ×2 (09:44→21:24)
[2021-02-10 12:00] VITALS: BP 92/74
--- NOTE | 2021-02-10 12:00 | NUR ---
MUCH DIFFICULTY GIVING PATIENT HIS MEDICATIONS REFUSES AND WILL TAKE BITS AND BITS .WILL CONTINUE TO OBSERVE AND ENCOURAGE MEDICATION COMPLIANT.
--- NOTE | 2021-02-10 14:08 | NUR ---
NOTED ORDER FOR PSYCH EVAL THAT WAS WRITTEN YESTERDAY BY DR LERMA MISCELLENOUS ORDER AND WAS NOT FOLLOWED UP CALL DR CHEEK WHO IS HEARING SPECIALIST TODAY AND SHE STATED TO CALL DR JOSEPH HE WAS HEARING SPECIALIST YESTERDAY SO I CALLED DR JOSEPH SPOKE WITH HIM STATED WILL SEE THE PATIENT TODAY [facility] WAS ALSO NOTIFIED OF THIS CONSULT AND FACE SHEET FAXED TO THEM.
[2021-02-10 16:07] VITALS: BP 146/76
--- NOTE | 2021-02-10 17:00 | NUR ---
TOMMIE REMAINS OFF REQUESTED BY HIS WHO IS STILL AT THE BEDSIDE STATED SHE WILL KEEP AN EYE ON HIM TO ENSURE THAT HE DID NOT REMOVE HIS LINES.
[2021-02-10] MEDS: CEFEPIME HCL 2 G in IV DEXTROSE 5% 100 ML IV SCH (17:49)
--- NOTE | 2021-02-10 18:46 | NUR ---
DR JOSEPH HERE AND SEEN PATIENT WITH PATIENTS DAUGHTER AT THE BEDSIDE FOR PSYCH EVALUATION WITH NEW ORDERS AND NOTED.
[2021-02-10 20:30] VITALS: BP 133/64
[2021-02-10] MEDS: ATORVASTATIN 40 MG TABLET PO SCH (21:32)
--- NOTE | 2021-02-10 22:24 | NUR ---
Patient in bed confused.Verbally responsive .On O2 at 4LPM via NC saturating at 94 %.Solomon catheter in place draining well with clear yelllow urine output. Iv on right wrsit 22 g patent and intact.Infused IV ATB as order no a/r noted.S/p CABG surgical site on mid abdomen clean and dry. S/p Left hip ORIf with staple intact.Will continue to monitor. VSs
[2021-02-11 00:07] VITALS: BP 130/61
[2021-02-11 04:29] VITALS: BP 145/69
[2021-02-11 06:24] LABS: HEMATOCRIT 28.7 % (36.7-47.1); MEAN CORPUSCULAR HEMOGLOBIN 31.7 uug (23.8-33.4); MEAN CORPUSCULAR VOLUME 96.6 fL (73.0-96.2); PLATELET COUNT (AUTO) 364 K/uL (152-348)
[2021-02-11] MEDS: ALBUTEROL SULFATE 2.5 MG/3 ML NEBU NEB PRN ×3 (06:30→22:55)
[2021-02-11] MEDS: IPRATROPIUM BROMIDE 0.5 MG/2.5 ML NEBU NEB PRN ×3 (06:30→22:55)
[2021-02-11] MEDS: BLOOD SUGAR DIAGNOSTIC 1 EACH STRIP VI SCH ×4 (06:50→21:40)
[2021-02-11 06:52] LABS: CARBON DIOXIDE 26 mmol/L (21-32); CHLORIDE 107 mmol/L (98-107); CREATININE 3.3 mg/dL (0.6-1.3); GLUCOSE 293 mg/dL (74-106); MAGNESIUM 1.9 mg/dL (1.8-2.4); PHOSPHOROUS 2.8 mg/dL (2.5-4.9); POTASSIUM 3.5 mmol/L (3.5-5.1); UREA NITROGEN, BLOOD 52 mg/dL (7-18)
[2021-02-11] MEDS: INSULIN REGULAR, HUMAN 300 UNIT/3 ML VIAL SQ PRN ×4 (07:00→22:30)
--- NOTE | 2021-02-11 07:15 | NUR ---
NURSE REPORT REPORT OBTAINED FROM TIARA AND THIS NURSE ASSUMED CARE OF PATIENT. RECEIVED PATIENT ASLEEP AT BEGINNING OF DAYS SHIFT. NO SXS OF PAIN OR DISCOMFORT
--- NOTE | 2021-02-11 10:00 | NUR ---
NURSE CARE MED CRUSHED AND GIVEN IN [place]URT BUT SLOWLY. PATIENT WILL NOT OPEN HIS MOUTH TO TAKE MED.
[2021-02-11] MEDS: FAMOTIDINE 20 MG TABLET PO SCH (10:26)
[2021-02-11] MEDS: CHOLECALCIFEROL 1,000 UNIT TABLET PO SCH (10:26)
[2021-02-11] MEDS: ALLOPURINOL 100 MG TABLET PO SCH ×2 (10:27→18:26)
[2021-02-11] MEDS: CLOPIDOGREL 75 MG TABLET PO SCH (10:27)
[2021-02-11] MEDS: ASPIRIN 81 MG TAB.CHEW PO SCH (10:27)
[2021-02-11] MEDS: FERROUS SULFATE 325 MG TABEC PO SCH ×2 (10:27→18:26)
[2021-02-11] MEDS: AMIODARONE HCL 200 MG TABLET PO SCH (10:27)
[2021-02-11] MEDS: DOXYCYCLINE HYCLATE IV 200 MG in IV DEXTROSE 5% 250 ML IV SCH ×2 (10:28→21:34)
[2021-02-11] MEDS: LINAGLIPTIN 5 MG TABLET PO SCH (10:28)
[2021-02-11] MEDS: CARVEDILOL 6.25 MG TABLET PO SCH ×2 (10:29→18:26)
[2021-02-11] MEDS: LATANOPROST OPHT DROP 2.5 ML BOTTLE RIGHTEYE SCH (10:36)
[2021-02-11] MEDS: prednisoLONE ACET 1% OPHT DROP 5 ML BOTTLE LEFTEYE SCH ×2 (10:36→21:33)
[2021-02-11] MEDS: DORZOLAMIDE/TIMOLOL OPHT DROP 10 ML BOTTLE RIGHTEYE SCH ×2 (10:37→21:33)
--- NOTE | 2021-02-11 12:00 | NUR ---
NURSE CARE BG BEFORE LUNCH 286, BUT HE DIDN'T EAT LUNCH.
[2021-02-11 12:03] VITALS: BP 137/83
[2021-02-11 16:00] VITALS: BP 135/69
--- NOTE | 2021-02-11 18:00 | NUR ---
NURSE CARE BG 341. GIVEN 8 UNITS REGULAR INSULIN.
[2021-02-11] MEDS: CEFEPIME HCL 2 G in IV DEXTROSE 5% 100 ML IV SCH (18:27)
--- NOTE | 2021-02-11 19:20 | NUR ---
NURSE REPORT Report given to night nurse Vannesa to assume care of patient. VSS. Afeb. staying in room with patient. Med crushed and given in soup. Patient don't like apple sauce. Jeannette Motley
[2021-02-11 20:12] VITALS: BP 136/65
--- NOTE | 2021-02-11 21:00 | NUR ---
Received patient A/O x 1. Restless. Family at bedside. O2 3L NC sating at 93%. CABG incision in the anterior chest wall C/D/I, left open to air. Left hip fx incision dressing is C/D/I. Solomon draining clear and yellow urine. Mouth care provided. Safety initiated. Call light within reach. Bed alarm on. Will continue to monitor.
[2021-02-11] MEDS: ATORVASTATIN 40 MG TABLET PO SCH (21:34)
--- NOTE | 2021-02-11 22:00 | NUR ---
Solomon care provided. Bedtime care provided. BM x 1. Pulse ox monitor at bedside for monitoring. Will continue to monitor.
[2021-02-12 00:04] VITALS: BP 117/56
[2021-02-12 04:20] VITALS: BP 146/67
--- NOTE | 2021-02-12 06:47 | NUR ---
Safety and comfort measures maintained T/O shift. Good urine output. All meds given as ordered. All needs met.
[2021-02-12] MEDS: BLOOD SUGAR DIAGNOSTIC 1 EACH STRIP VI SCH ×4 (07:29→21:40)
--- NOTE | 2021-02-12 07:30 | NUR ---
Patient received in bed with eyes closed, arousable to touch. Family at bedside. O2 is at 3L via NC and patient is saturating at 93%. Left hip dressing is clean dry and intact. Solomon catheter draining clear yellow urine via gravity. Patient is NSR on monitor with HR in the 90s. Right FA IV is patent with no redness or swelling at this time. No acute distress noted. Call light and personal belongings within easy reach. Will continue to monitor.
[2021-02-12] MEDS: CHOLECALCIFEROL 1,000 UNIT TABLET PO SCH (08:32)
[2021-02-12] MEDS: ASPIRIN 81 MG TAB.CHEW PO SCH (08:32)
[2021-02-12] MEDS: CLOPIDOGREL 75 MG TABLET PO SCH (08:33)
[2021-02-12] MEDS: FERROUS SULFATE 325 MG TABEC PO SCH ×2 (08:33→17:34)
[2021-02-12] MEDS: INSULIN REGULAR, HUMAN 300 UNIT/3 ML VIAL SQ PRN ×4 (08:43→21:57)
[2021-02-12] MEDS: FAMOTIDINE 20 MG TABLET PO SCH (08:55)
[2021-02-12] MEDS: ALLOPURINOL 100 MG TABLET PO SCH ×2 (08:55→17:34)
[2021-02-12] MEDS: AMIODARONE HCL 200 MG TABLET PO SCH (09:03)
[2021-02-12] MEDS: CARVEDILOL 6.25 MG TABLET PO SCH (09:04)
[2021-02-12] MEDS: prednisoLONE ACET 1% OPHT DROP 5 ML BOTTLE LEFTEYE SCH ×2 (09:09→21:49)
[2021-02-12] MEDS: DORZOLAMIDE/TIMOLOL OPHT DROP 10 ML BOTTLE RIGHTEYE SCH ×2 (09:09→21:49)
[2021-02-12] MEDS: LINAGLIPTIN 5 MG TABLET PO SCH (09:14)
[2021-02-12] MEDS: DOXYCYCLINE HYCLATE IV 200 MG in IV DEXTROSE 5% 250 ML IV SCH ×2 (09:30→21:44)
--- NOTE | 2021-02-12 10:00 | NUR ---
PT at bedside, attempted to get patient sitting in a chair. However, patient's B/P dropped to 51/34 as reported by the PT team. Patient was promptly brought back to bed and manual blood pressure was taken. B/P is 100/60. Will continue to monitor.
[2021-02-12 12:00] VITALS: BP 126/70
[2021-02-12 16:00] VITALS: BP 134/70
[2021-02-12] MEDS: CEFEPIME HCL 2 G in IV DEXTROSE 5% 100 ML IV SCH (17:34)
[2021-02-12 20:39] VITALS: BP 123/66
[2021-02-12] MEDS ORDERED: ATORVASTATIN 10 MG TABLET PO SCH (21:00)
[2021-02-12] MEDS: ATORVASTATIN 20 MG TABLET PO SCH (21:45)
[2021-02-12] MEDS: LATANOPROST OPHT DROP 2.5 ML BOTTLE RIGHTEYE SCH (21:48)
--- NOTE | 2021-02-12 23:53 | NUR ---
RECEIVED PATIENT IN BED AWAKE WITH SPOUSE AT BEDSIDE. ON 3 L OF O2 VIA NC WITH 97% SATURATION. F/C INTACT, PATENT AND DRAINING CLEAR YELLOW URINE. NSR ON MONITOR.
[2021-02-13 00:32] VITALS: BP 140/68
[2021-02-13 04:35] VITALS: BP 141/71
--- NOTE | 2021-02-13 05:35 | NUR ---
Pt slept throughout the night. Denies pain or SOB. On 3L NC sating 96%. at bedside. Safety and comfort provided. No other issues or concerns at this time, will endorse to day shift.
[2021-02-13 05:57] LABS: HEMATOCRIT 31.9 % (36.7-47.1); MEAN CORPUSCULAR HEMOGLOBIN 30.6 uug (23.8-33.4); PLATELET COUNT (AUTO) 358 K/uL (152-348)
[2021-02-13 06:23] LABS: CARBON DIOXIDE 24 mmol/L (21-32); CHLORIDE 113 mmol/L (98-107); CREATININE 3.9 mg/dL (0.6-1.3); GLUCOSE 287 mg/dL (74-106); MAGNESIUM 2.1 mg/dL (1.8-2.4); PHOSPHOROUS 3.7 mg/dL (2.5-4.9); POTASSIUM 3.5 mmol/L (3.5-5.1); UREA NITROGEN, BLOOD 64 mg/dL (7-18)
[2021-02-13] MEDS: BLOOD SUGAR DIAGNOSTIC 1 EACH STRIP VI SCH ×4 (06:58→20:44)
--- NOTE | 2021-02-13 07:30 | NUR ---
Patient received in bed with eyes open, alert and oriented to self but confused and requires frequent reorientation. Unable to follow directions. Daughter at bedside. O2 is at 3L via NC and patient is saturating at 95%. Solomon catheter draining clear yellow urine via gravity. Patient is sinus tachycardia on monitor with HR in low 100s. Right FA IV is patent with no redness or swelling at this time. No acute distress noted. Call light and personal belongings within easy reach. Will continue to monitor.
[2021-02-13] MEDS: ALBUTEROL SULFATE 2.5 MG/3 ML NEBU NEB PRN ×2 (08:41→22:19)
[2021-02-13] MEDS: IPRATROPIUM BROMIDE 0.5 MG/2.5 ML NEBU NEB PRN ×2 (08:41→22:19)
[2021-02-13] MEDS: INSULIN REGULAR, HUMAN 300 UNIT/3 ML VIAL SQ PRN ×4 (09:14→20:46)
[2021-02-13] MEDS: CHOLECALCIFEROL 1,000 UNIT TABLET PO SCH (09:15)
[2021-02-13] MEDS: FAMOTIDINE 20 MG TABLET PO SCH (09:15)
[2021-02-13] MEDS: ALLOPURINOL 100 MG TABLET PO SCH ×2 (09:15→16:57)
[2021-02-13] MEDS: FERROUS SULFATE 325 MG TABEC PO SCH ×2 (09:16→16:57)
[2021-02-13] MEDS: CLOPIDOGREL 75 MG TABLET PO SCH (09:16)
[2021-02-13] MEDS: prednisoLONE ACET 1% OPHT DROP 5 ML BOTTLE LEFTEYE SCH ×2 (09:16→20:44)
[2021-02-13] MEDS: AMIODARONE HCL 200 MG TABLET PO SCH (09:16)
[2021-02-13] MEDS: LINAGLIPTIN 5 MG TABLET PO SCH (09:16)
[2021-02-13] MEDS: ASPIRIN 81 MG TAB.CHEW PO SCH (09:16)
[2021-02-13] MEDS: DORZOLAMIDE/TIMOLOL OPHT DROP 10 ML BOTTLE RIGHTEYE SCH ×2 (09:18→20:17)
[2021-02-13] MEDS: LATANOPROST OPHT DROP 2.5 ML BOTTLE RIGHTEYE SCH (09:19)
[2021-02-13] MEDS: DOXYCYCLINE HYCLATE IV 200 MG in IV DEXTROSE 5% 250 ML IV SCH ×2 (09:19→20:47)
[2021-02-13] MEDS: CARVEDILOL 6.25 MG TABLET PO SCH ×2 (09:27→16:57)
[2021-02-13 12:00] VITALS: BP 112/63
[2021-02-13 15:32] VITALS: BP 123/62
[2021-02-13] MEDS: CEFEPIME HCL 2 G in IV DEXTROSE 5% 100 ML IV SCH (18:10)
--- NOTE | 2021-02-13 19:30 | NUR ---
Received pt in bed, A&O to self with confusion noted, unable to follow simple commands, requires frequent reorientation. Pt on oxygen at 3LPM via NC, saturating 96%, no signs of respiratory distress. Denies any pain or discomfort. With Solomon cath, draining well. Safety measures initiated, call light within reach. Family at bedside.
[2021-02-13 20:16] VITALS: BP 122/63
[2021-02-13] MEDS: ATORVASTATIN 20 MG TABLET PO SCH (20:17)
[2021-02-14 00:08] VITALS: BP 105/61
[2021-02-14] MEDS: BLOOD SUGAR DIAGNOSTIC 1 EACH STRIP VI SCH ×4 (06:46→20:05)
--- NOTE | 2021-02-14 07:00 | NUR ---
Slept through the night, no signs of distress. Tolerated medications well. Repositioned as needed. Breathing treatment given by RT. Wound dressing done. No significant change in condition noted. Endorsed to day shift nurse.
[2021-02-14] MEDS: LINAGLIPTIN 5 MG TABLET PO SCH (08:27)
[2021-02-14] MEDS: CHOLECALCIFEROL 1,000 UNIT TABLET PO SCH (08:27)
[2021-02-14] MEDS: ASPIRIN 81 MG TAB.CHEW PO SCH (08:27)
[2021-02-14] MEDS: AMIODARONE HCL 200 MG TABLET PO SCH (08:28)
[2021-02-14] MEDS: CARVEDILOL 6.25 MG TABLET PO SCH ×2 (08:28→17:36)
[2021-02-14] MEDS: FERROUS SULFATE 325 MG TABEC PO SCH ×2 (08:29→17:36)
[2021-02-14] MEDS: CLOPIDOGREL 75 MG TABLET PO SCH (08:29)
[2021-02-14] MEDS: ALLOPURINOL 100 MG TABLET PO SCH ×2 (08:29→17:36)
[2021-02-14] MEDS: FAMOTIDINE 20 MG TABLET PO SCH (08:29)
[2021-02-14] MEDS: LATANOPROST OPHT DROP 2.5 ML BOTTLE RIGHTEYE SCH (08:31)
[2021-02-14] MEDS: DORZOLAMIDE/TIMOLOL OPHT DROP 10 ML BOTTLE RIGHTEYE SCH ×2 (08:35→20:04)
[2021-02-14] MEDS: ALBUTEROL SULFATE 2.5 MG/3 ML NEBU NEB PRN (08:48)
[2021-02-14] MEDS: IPRATROPIUM BROMIDE 0.5 MG/2.5 ML NEBU NEB PRN (08:48)
[2021-02-14] MEDS: prednisoLONE ACET 1% OPHT DROP 5 ML BOTTLE LEFTEYE SCH ×2 (08:48→20:04)
[2021-02-14] MEDS: INSULIN REGULAR, HUMAN 300 UNIT/3 ML VIAL SQ PRN ×4 (08:53→20:12)
[2021-02-14] MEDS: DOXYCYCLINE HYCLATE IV 200 MG in IV DEXTROSE 5% 250 ML IV SCH ×2 (08:54→20:04)
[2021-02-14 09:14] LABS: HEMATOCRIT 30.9 % (36.7-47.1); MEAN CORPUSCULAR HEMOGLOBIN 30.9 uug (23.8-33.4); MEAN CORPUSCULAR VOLUME 97.5 fL (73.0-96.2); PLATELET COUNT (AUTO) 310 K/uL (152-348)
[2021-02-14 09:33] LABS: CARBON DIOXIDE 26 mmol/L (21-32); CHLORIDE 109 mmol/L (98-107); CREATININE 4.6 mg/dL (0.6-1.3); POTASSIUM 3.9 mmol/L (3.5-5.1); UREA NITROGEN, BLOOD 77 mg/dL (7-18)
[2021-02-14 09:34] LABS: GLUCOSE 347 mg/dL (74-106)
[2021-02-14 11:55] VITALS: BP 131/60
[2021-02-14] MEDS ORDERED: ALBUMIN HUMAN 25% 50 ML IV ONE (13:00)
[2021-02-14 16:31] VITALS: BP 112/61
[2021-02-14 16:49] LABS: *BILIRUBIN,URIN NEGATIVE (NEGATIVE); *BLOOD, URINE 2+ (NEGATIVE); *CLARITY,URINE CLEAR (CLEAR); *COLOR,URINE YELLOW (YELLOW); *KETONES,URINE NEGATIVE (NEGATIVE); *UROBILINOGEN,URINE 0.2 E.U./dl (NORMAL); LEUKOCYTE ESTERASE ,URINE TRACE (NEGATIVE); NITRITE, URINE NEGATIVE (NEGATIVE); PH,URINE 5.5 (5.0-8.0); UGLUCOSE TRACE (NEGATIVE)
[2021-02-14 16:53] LABS: *CREATININE,URINE 61.1 mg/dL (30-125); *URINE TOTAL PROTEIN RANDOM 84.5 mg/dL (<150/24HR)
[2021-02-14 17:02] LABS: BACTERIA,URINE FEW /HPF (NONE SEEN); SQUAMOUS EPITHELIAL CELL,UR FEW /HPF (NONE SEEN); URINE AMORPHOUS URATE FEW /HPF
[2021-02-14] MEDS: CEFEPIME HCL 2 G in IV DEXTROSE 5% 100 ML IV SCH (17:35)
--- NOTE | 2021-02-14 18:55 | NUR ---
Received patient alert and oriented x 2, family at bedside the whole shift. Noticed a redness on the right forearm where the IV is inserted. Per Blessing Garrido to start the IV on the left side. Tolerated well. Urine sample is given to the lab. Per family, they will try to talk to the patient to get a sputum sample. Solomon catheter draining well. All needs met promptly. Call light placed within reach.
[2021-02-14] MEDS: ATORVASTATIN 20 MG TABLET PO SCH (20:04)
[2021-02-14 20:24] VITALS: BP 104/54
[2021-02-15 00:09] VITALS: BP 119/55
[2021-02-15 04:24] VITALS: BP 124/44
[2021-02-15] MEDS: BLOOD SUGAR DIAGNOSTIC 1 EACH STRIP VI SCH ×4 (06:29→20:03)
[2021-02-15 06:34] LABS: HEMATOCRIT 28.3 % (36.7-47.1); MEAN CORPUSCULAR HEMOGLOBIN 31.5 uug (23.8-33.4); MEAN CORPUSCULAR VOLUME 96.3 fL (73.0-96.2); PLATELET COUNT (AUTO) 240 K/uL (152-348)
[2021-02-15 06:51] LABS: CARBON DIOXIDE 24 mmol/L (21-32); CHLORIDE 107 mmol/L (98-107); CREATININE 4.1 mg/dL (0.6-1.3); GLUCOSE 255 mg/dL (74-106); MAGNESIUM 1.8 mg/dL (1.8-2.4); PHOSPHOROUS 4.2 mg/dL (2.5-4.9); POTASSIUM 3.5 mmol/L (3.5-5.1); UREA NITROGEN, BLOOD 74 mg/dL (7-18)
[2021-02-15] MEDS: CHOLECALCIFEROL 1,000 UNIT TABLET PO SCH (09:12)
[2021-02-15] MEDS: ALLOPURINOL 100 MG TABLET PO SCH ×2 (09:12→17:24)
[2021-02-15] MEDS: CLOPIDOGREL 75 MG TABLET PO SCH (09:12)
[2021-02-15] MEDS: CARVEDILOL 6.25 MG TABLET PO SCH ×2 (09:12→17:24)
[2021-02-15] MEDS: ASPIRIN 81 MG TAB.CHEW PO SCH (09:12)
[2021-02-15] MEDS: FERROUS SULFATE 325 MG TABEC PO SCH ×2 (09:12→17:24)
[2021-02-15] MEDS: LINAGLIPTIN 5 MG TABLET PO SCH (09:12)
[2021-02-15] MEDS: FAMOTIDINE 20 MG TABLET PO SCH (09:13)
[2021-02-15] MEDS: AMIODARONE HCL 200 MG TABLET PO SCH (09:13)
[2021-02-15] MEDS: DOXYCYCLINE HYCLATE IV 200 MG in IV DEXTROSE 5% 250 ML IV SCH ×2 (09:13→20:11)
[2021-02-15] MEDS: DORZOLAMIDE/TIMOLOL OPHT DROP 10 ML BOTTLE RIGHTEYE SCH ×2 (09:14→20:03)
[2021-02-15] MEDS: prednisoLONE ACET 1% OPHT DROP 5 ML BOTTLE LEFTEYE SCH ×2 (09:15→20:02)
[2021-02-15] MEDS: INSULIN REGULAR, HUMAN 300 UNIT/3 ML VIAL SQ PRN ×4 (09:18→20:13)
[2021-02-15 11:02] VITALS: BP 108/49
[2021-02-15 15:29] VITALS: BP 122/61
[2021-02-15] MEDS: CEFEPIME HCL 2 G in IV DEXTROSE 5% 100 ML IV SCH (17:24)
[2021-02-15] MEDS ORDERED: LATANOPROST OPHT DROP 2.5 ML BOTTLE RIGHTEYE SCH ×2 (18:00→20:15)
--- NOTE | 2021-02-15 19:30 | NUR ---
RECEIVED PT AWAKE, ALERT AND ORIENTEDX2. AT BEDSIDE. IV INTACT. PT ON 3L NASAL CANNULA. PT DIAZ CATHETER DRAINING WELL. SAFETY AND COMFORT PROVIDED. WILL CONTINUE TO MONITOR.
[2021-02-15] MEDS: ATORVASTATIN 20 MG TABLET PO SCH (20:03)
[2021-02-15 21:10] VITALS: BP 114/50
[2021-02-15] MEDS: LATANOPROST OPHT DROP 2.5 ML BOTTLE RIGHTEYE SCH (21:19)
[2021-02-16 00:21] VITALS: BP 100/52
[2021-02-16] MEDS: IPRATROPIUM BROMIDE 0.5 MG/2.5 ML NEBU NEB PRN (03:11)
[2021-02-16] MEDS: ALBUTEROL SULFATE 2.5 MG/3 ML NEBU NEB PRN (03:11)
[2021-02-16 04:31] VITALS: BP 114/55
--- NOTE | 2021-02-16 06:08 | NUR ---
PT SLEPT INTERMITTENTLY. PT IN NO ACUTE DISTRESS. PRESCRIBED MEDICATION GIVEN AND PT TOLERATED IT WELL. PT TURNED AND REPOSITIONED. IV INTACT. SAFETY AND COMFORT PROVIDED.ALL NEEDS ARE MET. PT STABLE. PT ON 3L OXYGEN NASAL CANNULA. PT DIAZ INTACT AND DRAINING WELL. WILL ENDORSE TO INCOMING NURSE FOR CONTINUITY OF CARE.
[2021-02-16] MEDS: BLOOD SUGAR DIAGNOSTIC 1 EACH STRIP VI SCH ×4 (06:31→20:41)
[2021-02-16 06:37] LABS: HEMATOCRIT 29.2 % (36.7-47.1); MEAN CORPUSCULAR HEMOGLOBIN 31.5 uug (23.8-33.4); PLATELET COUNT (AUTO) 225 K/uL (152-348)
[2021-02-16 06:56] LABS: CARBON DIOXIDE 24 mmol/L (21-32); CHLORIDE 105 mmol/L (98-107); CREATININE 4.1 mg/dL (0.6-1.3); GLUCOSE 237 mg/dL (74-106); MAGNESIUM 1.7 mg/dL (1.8-2.4); PHOSPHOROUS 3.8 mg/dL (2.5-4.9); POTASSIUM 3.7 mmol/L (3.5-5.1); UREA NITROGEN, BLOOD 71 mg/dL (7-18)
--- NOTE | 2021-02-16 08:00 | NUR ---
received report. all questions, comments, and concerns were addressed. received patient awake in his assigned room. bed is in low and locked position.
[2021-02-16] MEDS: DOXYCYCLINE HYCLATE IV 200 MG in IV DEXTROSE 5% 250 ML IV SCH (08:42)
[2021-02-16] MEDS: prednisoLONE ACET 1% OPHT DROP 5 ML BOTTLE LEFTEYE SCH ×2 (08:43→20:39)
[2021-02-16] MEDS: DORZOLAMIDE/TIMOLOL OPHT DROP 10 ML BOTTLE RIGHTEYE SCH ×2 (08:44→20:40)
[2021-02-16] MEDS: FERROUS SULFATE 325 MG TABEC PO SCH ×2 (08:57→17:21)
[2021-02-16] MEDS: CHOLECALCIFEROL 1,000 UNIT TABLET PO SCH (08:57)
[2021-02-16] MEDS: CLOPIDOGREL 75 MG TABLET PO SCH (08:58)
[2021-02-16] MEDS: CARVEDILOL 6.25 MG TABLET PO SCH ×2 (08:58→17:21)
[2021-02-16] MEDS: LINAGLIPTIN 5 MG TABLET PO SCH (08:58)
[2021-02-16] MEDS: FAMOTIDINE 20 MG TABLET PO SCH (08:58)
[2021-02-16] MEDS: AMIODARONE HCL 200 MG TABLET PO SCH (08:58)
[2021-02-16] MEDS: ALLOPURINOL 100 MG TABLET PO SCH ×2 (08:58→17:21)
[2021-02-16] MEDS: ASPIRIN 81 MG TAB.CHEW PO SCH (08:58)
[2021-02-16] MEDS: INSULIN REGULAR, HUMAN 300 UNIT/3 ML VIAL SQ PRN ×4 (08:59→20:39)
[2021-02-16 11:48] VITALS: BP 108/46
[2021-02-16 15:26] VITALS: BP 135/62
[2021-02-16] MEDS: CEFEPIME HCL 2 G in IV DEXTROSE 5% 100 ML IV SCH (17:35)
--- NOTE | 2021-02-16 18:41 | NUR ---
0800- BS 233. 4 units insulin given per sliding scale, tolerated well. No s/s of hyperglycemia at this time. 1200- BS 263. 6 units insulin given per sliding scale, tolerated well. No s/s of hyperglycemia at this time. 1800- BS 244. 4 units insulin given per sliding scale, tolerated well. No s/s of hyperglycemia at this time.
--- NOTE | 2021-02-16 18:43 | NUR ---
Patient is alert and oriented to name only. Patient receiving 3L oxygen via NC, tolerating well. Patient on tele, SR. Respirations are even and unlabored, no signs of respiratory distress noted. Patient has garcia catheter, draining clear yellow urine. Family at bedside. Patient is compliant with medications with prompting, medications crushed in applesauce. Patient's PIV in left wrist is painful per patient. No swelling, redness, or infiltration at the site. Dr. Kushal Andrews notified, orders placed for midline catheter. Black eschar noted on right forearm, Dr. Kushal Andrews performed bedside I&D. Noted with bleeding at site. I&D site reinforced with 4x4 gauze and re-wrapped with JEFF bandage. Patient provided with education about use of call light. patient on air mattress.
[2021-02-16 20:15] VITALS: BP 123/73
[2021-02-16] MEDS: LATANOPROST OPHT DROP 2.5 ML BOTTLE RIGHTEYE SCH (20:40)
[2021-02-16] MEDS: ATORVASTATIN 20 MG TABLET PO SCH (20:41)
[2021-02-16] MEDS ORDERED: LATANOPROST OPHT DROP 2.5 ML BOTTLE RIGHTEYE SCH (21:00)
[2021-02-16] MEDS ORDERED: DOXYCYCLINE HYCLATE 100 MG TABLET PO SCH (21:00)
--- NOTE | 2021-02-16 23:00 | NUR ---
Patient is in bed with at bedside. Patient is confused with poor safety judgment. No facial grimacing observed. In no respiratory distress. Fall and safety precautions observed. Will continue to monitor patient.
[2021-02-17 00:09] VITALS: BP 120/52
--- NOTE | 2021-02-17 01:35 | NUR ---
Midline inserted by SARAHY Rosenthal. Patient tolerated procedure well. Midline placed at left upper arm 18G.
[2021-02-17 04:18] VITALS: BP 109/52
[2021-02-17] MEDS: FERROUS SULFATE 325 MG TABEC PO SCH ×2 (06:24→17:33)
[2021-02-17 06:30] LABS: HEMATOCRIT 29.4 % (36.7-47.1); MEAN CORPUSCULAR VOLUME 95.5 fL (73.0-96.2); PLATELET COUNT (AUTO) 199 K/uL (152-348)
[2021-02-17 06:45] LABS: CARBON DIOXIDE 23 mmol/L (21-32); CHLORIDE 103 mmol/L (98-107); GLUCOSE 199 mg/dL (74-106); MAGNESIUM 1.8 mg/dL (1.8-2.4); PHOSPHOROUS 3.9 mg/dL (2.5-4.9); POTASSIUM 3.6 mmol/L (3.5-5.1)
[2021-02-17 06:59] LABS: UREA NITROGEN, BLOOD 68 mg/dL (7-18)
[2021-02-17] MEDS: BLOOD SUGAR DIAGNOSTIC 1 EACH STRIP VI SCH ×4 (07:47→21:38)
[2021-02-17] MEDS: INSULIN REGULAR, HUMAN 300 UNIT/3 ML VIAL SQ PRN ×4 (07:48→21:37)
--- NOTE | 2021-02-17 08:00 | NUR ---
AWAKE ALERT BUT CONFUSED X2 WITH O2 AT 3L NC SATURATING 98%. SR ON MONITOR
[2021-02-17] MEDS: ASPIRIN 81 MG TAB.CHEW PO SCH (08:42)
[2021-02-17] MEDS: CARVEDILOL 6.25 MG TABLET PO SCH ×2 (08:43→17:34)
[2021-02-17] MEDS: AMIODARONE HCL 200 MG TABLET PO SCH (08:44)
[2021-02-17] MEDS: LINAGLIPTIN 5 MG TABLET PO SCH (08:44)
[2021-02-17] MEDS: ALLOPURINOL 100 MG TABLET PO SCH ×2 (08:44→17:33)
[2021-02-17] MEDS: CLOPIDOGREL 75 MG TABLET PO SCH (08:45)
[2021-02-17] MEDS: CHOLECALCIFEROL 1,000 UNIT TABLET PO SCH (08:45)
[2021-02-17] MEDS: FAMOTIDINE 20 MG TABLET PO SCH (08:49)
[2021-02-17] MEDS: prednisoLONE ACET 1% OPHT DROP 5 ML BOTTLE LEFTEYE SCH ×2 (08:51→21:27)
[2021-02-17] MEDS: DORZOLAMIDE/TIMOLOL OPHT DROP 10 ML BOTTLE RIGHTEYE SCH ×2 (08:53→21:27)
[2021-02-17 12:00] VITALS: BP 120/62
--- NOTE | 2021-02-17 12:00 | NUR ---
SEEN BY DR NIETO SPOKE WITH FAMILY ABOUT PLAN OF CARE SEE NOTES
[2021-02-17 16:44] VITALS: BP 148/95
--- NOTE | 2021-02-17 18:42 | NUR ---
FAMILY REMAINS AT BEDSIDE ALL DAY, VERY SUPPORTIVE WITH CARE. PATIENT REMAINS WITH ON AND OFF CONFUSION. SR ON MONITOR
[2021-02-17] MEDS: ATORVASTATIN 20 MG TABLET PO SCH (21:27)
[2021-02-17] MEDS: LATANOPROST OPHT DROP 2.5 ML BOTTLE RIGHTEYE SCH (21:27)
[2021-02-17 21:52] VITALS: BP 122/60
[2021-02-18 00:40] VITALS: BP 116/54
[2021-02-18 04:40] VITALS: BP 136/73
--- NOTE | 2021-02-18 05:29 | NUR ---
Patient awake and alert, very forgetful at times. Uncooperative with care. at remains at bedside and is very involved with care. SR on monitor. Afebrile. 3L NC, although patient frequently removes O2. BP WNL. Assisted with repositioning, no new skin issues noted. Wound care performed to right FA wound. No acute events occurred overnight.
[2021-02-18] MEDS: FERROUS SULFATE 325 MG TABEC PO SCH ×2 (06:00→16:04)
[2021-02-18] MEDS: BLOOD SUGAR DIAGNOSTIC 1 EACH STRIP VI SCH ×4 (08:14→21:34)
[2021-02-18] MEDS: INSULIN REGULAR, HUMAN 300 UNIT/3 ML VIAL SQ PRN ×4 (08:16→21:39)
[2021-02-18] MEDS: ASPIRIN 81 MG TAB.CHEW PO SCH (08:18)
[2021-02-18] MEDS: CHOLECALCIFEROL 1,000 UNIT TABLET PO SCH (08:18)
[2021-02-18] MEDS: CLOPIDOGREL 75 MG TABLET PO SCH (08:20)
[2021-02-18] MEDS: LINAGLIPTIN 5 MG TABLET PO SCH (08:20)
[2021-02-18] MEDS: FAMOTIDINE 20 MG TABLET PO SCH (08:20)
[2021-02-18] MEDS: AMIODARONE HCL 200 MG TABLET PO SCH (08:21)
[2021-02-18] MEDS: CARVEDILOL 6.25 MG TABLET PO SCH ×2 (08:22→16:09)
[2021-02-18] MEDS: prednisoLONE ACET 1% OPHT DROP 5 ML BOTTLE LEFTEYE SCH ×2 (08:23→21:04)
[2021-02-18] MEDS: ALLOPURINOL 100 MG TABLET PO SCH ×2 (08:23→16:04)
[2021-02-18] MEDS: DORZOLAMIDE/TIMOLOL OPHT DROP 10 ML BOTTLE RIGHTEYE SCH ×2 (08:24→21:05)
--- NOTE | 2021-02-18 08:30 | NUR ---
RESTING COMFORTABLY IN BED, NO SS OF PAIN OR ACUTE DISTRESS O2 3L NC SATURATING 95%. SR ON MONITOR
[2021-02-18 09:16] LABS: MEAN CORPUSCULAR HEMOGLOBIN 30.3 uug (23.8-33.4); MEAN CORPUSCULAR VOLUME 95.3 fL (73.0-96.2); PLATELET COUNT (AUTO) 189 K/uL (152-348)
[2021-02-18 09:34] LABS: CARBON DIOXIDE 21 mmol/L (21-32); CHLORIDE 104 mmol/L (98-107); CREATININE 3.9 mg/dL (0.6-1.3); GLUCOSE 261 mg/dL (74-106); PHOSPHOROUS 4.6 mg/dL (2.5-4.9); POTASSIUM 3.6 mmol/L (3.5-5.1); UREA NITROGEN, BLOOD 66 mg/dL (7-18)
[2021-02-18 12:00] VITALS: BP 120/46
--- NOTE | 2021-02-18 13:55 | NUR ---
RESTING COMFORTABLY IN BED WITH FAMILY AT BEDSIDE. STILL WITH ON AND OFF CONFUSION TO TIME AND PLACE. O2 3L NC SATURATING 96%. SR ON MONITOR
[2021-02-18 16:00] VITALS: BP 115/51
[2021-02-18] MEDS: GLUCERNA SHAKE VANILLA 237 ML CAN PO SCH (16:05)
[2021-02-18 20:59] VITALS: BP 117/55
[2021-02-18] MEDS: LATANOPROST OPHT DROP 2.5 ML BOTTLE RIGHTEYE SCH (21:04)
[2021-02-18] MEDS: ATORVASTATIN 20 MG TABLET PO SCH (21:05)
[2021-02-19 04:35] VITALS: BP 116/61
[2021-02-19] MEDS: FERROUS SULFATE 325 MG TABEC PO SCH (06:04)
--- NOTE | 2021-02-19 07:36 | NUR ---
Received patient resting in bed. On 3L O2 via NC. With Left upper arm midline. No signs of acute distress. Patient denies pain/ discomfort at this time. call light within reach. bed alarm on. will continue to monitor.
[2021-02-19] MEDS: BLOOD SUGAR DIAGNOSTIC 1 EACH STRIP VI SCH ×2 (07:45→11:42)
[2021-02-19] MEDS: INSULIN REGULAR, HUMAN 300 UNIT/3 ML VIAL SQ PRN ×2 (07:47→11:53)
[2021-02-19 08:00] LABS: HEMATOCRIT 31.2 % (36.7-47.1); MEAN CORPUSCULAR HEMOGLOBIN 30.9 uug (23.8-33.4); MEAN CORPUSCULAR VOLUME 95.3 fL (73.0-96.2); PLATELET COUNT (AUTO) 173 K/uL (152-348)
[2021-02-19 08:16] LABS: CARBON DIOXIDE 20 mmol/L (21-32); CHLORIDE 102 mmol/L (98-107); CREATININE 3.6 mg/dL (0.6-1.3); GLUCOSE 257 mg/dL (74-106); PHOSPHOROUS 4.1 mg/dL (2.5-4.9); POTASSIUM 3.4 mmol/L (3.5-5.1); UREA NITROGEN, BLOOD 64 mg/dL (7-18)
[2021-02-19] MEDS: prednisoLONE ACET 1% OPHT DROP 5 ML BOTTLE LEFTEYE SCH (09:11)
[2021-02-19] MEDS: CHOLECALCIFEROL 1,000 UNIT TABLET PO SCH (09:12)
[2021-02-19] MEDS: LINAGLIPTIN 5 MG TABLET PO SCH (09:13)
[2021-02-19] MEDS: FAMOTIDINE 20 MG TABLET PO SCH (09:13)
[2021-02-19] MEDS: ALLOPURINOL 100 MG TABLET PO SCH (09:13)
[2021-02-19] MEDS: ASPIRIN 81 MG TAB.CHEW PO SCH (09:13)
[2021-02-19] MEDS: GLUCERNA SHAKE VANILLA 237 ML CAN PO SCH ×2 (09:16→13:11)
[2021-02-19] MEDS: CLOPIDOGREL 75 MG TABLET PO SCH (09:19)
[2021-02-19] MEDS: AMIODARONE HCL 200 MG TABLET PO SCH (09:20)
[2021-02-19] MEDS: DORZOLAMIDE/TIMOLOL OPHT DROP 10 ML BOTTLE RIGHTEYE SCH (09:20)
[2021-02-19] MEDS: CARVEDILOL 6.25 MG TABLET PO SCH (09:25)
[2021-02-19] MEDS ORDERED: POTASSIUM CHLORIDE 10 MEQ TAB.PRT.SR PO ONE (11:00)
[2021-02-19 11:06] VITALS: BP 105/62
[2021-02-19] MEDS ORDERED: POTASSIUM CHLORIDE 20 MEQ POWDER PACKET GT ONE (11:45)
--- NOTE | 2021-02-19 13:30 | NUR ---
Discharged patient to [facility]. Patient on 3L O2 via NC, saturating 96%. No signs of acute distress. Vital signs WNL. With left upper arm midline. Solomon catheter intact and draining well. Patient denies pain/ discomfort at this time. Daughter at bedside, aware of discharge. Belongings accounted for. Nursing report given to ZULEYKA Joshi of [facility]. Patient left unit via ambulance gurney.
[2021-02-19 15:24] VITALS: BP 126/56
== END 2021-02-19 15:15 | DRG 871 ==
LOC: MEDSURG3 15:47 → TELE3 23:47 → MEDSURG3 02-18 17:29
PROVIDERS: ADMIT Student in an Organized Health Care Education/Training Program; ATTEND Student in an Organized Health Care Education/Training Program
PROC: 05H633Z Insertion of Infusion Device into Left Subclavian Vein, Percutaneous Approach (ICD-10-PCS; principal; 2021-02-17)
PROC: B547ZZA Ultrasonography of Left Subclavian Vein, Guidance (ICD-10-PCS; 2021-02-17)
DX: A41.9 Sepsis, unspecified organism (principal); N17.0 Acute kidney failure with tubular necrosis; J96.01 Acute respiratory failure with hypoxia; J69.0 Pneumonitis due to inhalation of food and vomit; E43 Unspecified severe protein-calorie malnutrition; I50.43 Acute on chronic combined systolic (congestive) and diastolic (congestive) heart failure; G92 Toxic encephalopathy; I13.0 Hypertensive heart and chronic kidney disease with heart failure and stage 1 through stage 4 chronic kidney disease, or unspecified chronic kidney disease; D68.59 Other primary thrombophilia; J98.11 Atelectasis; E11.22 Type 2 diabetes mellitus with diabetic chronic kidney disease; N18.9 Chronic kidney disease, unspecified; I48.0 Paroxysmal atrial fibrillation; D50.9 Iron deficiency anemia, unspecified; E78.5 Hyperlipidemia, unspecified; I25.2 Old myocardial infarction; I95.1 Orthostatic hypotension; R13.10 Dysphagia, unspecified; Z95.1 Presence of aortocoronary bypass graft; Z96.652 Presence of left artificial knee joint; H40.9 Unspecified glaucoma; I25.10 Atherosclerotic heart disease of native coronary artery without angina pectoris; F41.9 Anxiety disorder, unspecified; F32.9 Major depressive disorder, single episode, unspecified; E87.6 Hypokalemia; Z91.81 History of falling; Z96.642 Presence of left artificial hip joint; D63.8 Anemia in other chronic diseases classified elsewhere; E11.319 Type 2 diabetes mellitus with unspecified diabetic retinopathy without macular edema; H35.62 Retinal hemorrhage, left eye; E66.9 Obesity, unspecified; F39 Unspecified mood [affective] disorder; R90.89 Other abnormal findings on diagnostic imaging of central nervous system; M10.9 Gout, unspecified; Z79.84 Long term (current) use of oral hypoglycemic drugs; Z68.27 Body mass index [BMI] 27.0-27.9, adult; F01.50 Vascular dementia, unspecified severity, without behavioral disturbance, psychotic disturbance, mood disturbance, and anxiety; R93.89 Abnormal findings on diagnostic imaging of other specified body structures
CPT/HCPCS: 36415; 36600; 70450; 70551; 71045; 76604; 76770; 83735; 83970; 84100; 84155; 84156; 84165; 84300; 84520; 85025; 87040; 87086; 94640; 94664; 97161; G0378; J0692; J1815; J1940; J2358; J2405; J2543; J2650; J3480; J3490; J3590; J7030; J7060; J8499; P9047